=== PATIENT | female | born 1970 ===

== ENCOUNTER 2021-10-18 09:25 | Emergency (ER) | payer BC ==
[2021-10-18] MEDS: Sodium Chloride 0.9% 1,000 ML IV ONE (10:35)
[2021-10-18] MEDS: Ondansetron 4 MG/2 ML SDV IVPUSH ONE (10:37)
[2021-10-18] MEDS: Meclizine 12.5 MG Tab PO ONE (10:39)
[2021-10-18] MEDS: Dexamethasone 4 MG/ML SDV IVPUSH ONE (10:40)
[2021-10-18 13:07] LABS: ANION GAP 14.2 mEq/L (7-13); CHLORIDE,CL 104 mmol/L (98-107); SODIUM,NA 141 mmol/L (136-145)
[2021-10-18 13:11] LABS: ESTIMATED GFR 91 mL/min (>=60)
== END 2021-10-18 14:04 | disposition home or self-care (01) ==
LOC: DL.ED 09:25
DX: R42 Dizziness and giddiness (principal); F17.210 Nicotine dependence, cigarettes, uncomplicated; K21.9 Gastro-esophageal reflux disease without esophagitis; E66.9 Obesity, unspecified; Z68.32 Body mass index [BMI] 32.0-32.9, adult; Z79.899 Other long term (current) drug therapy
CPT/HCPCS: 36415; 70450; 70486; 80053; 81003; 83735; 84443; 85025; 85651; 86140; 96361; 96374; 96375; 99284-25; A9270-GY; J1100; J2405; J3360; J7030